=== PATIENT | female | born 1955 | race Two or more races ===

== ENCOUNTER 2020-10-19 13:39 | Outpatient (CLI) | payer MEDICARE ==
[~2020-10-19] VITALS: Ht 152.4 cm; Wt 90.3 kg
[2020-10-19 14:01] VITALS: BP 127/77
--- NOTE | 2020-10-19 16:14 | Consultation ---
DATE OF CONSULTATION: GASTROENTEROLOGY CONSULTATION REFERRING PHYSICIAN: Janeth Rain M.D. CHIEF COMPLAINT: Referral for screening colonoscopy. PAST MEDICAL HISTORY: 1. Breast cancer. 2. Diabetes. 3. GERD. 4. Chronic back pain. 5. Hypothyroidism. PAST SURGICAL HISTORY: Right mastectomy. MEDICATIONS: Please see medication reconciliation list. FAMILY HISTORY: Noncontributory. SOCIAL HISTORY: The patient denies any tobacco, alcohol, or drug abuse. ALLERGIES: No known allergies. REVIEW OF SYSTEMS: Positive for GERD. PHYSICAL EXAMINATION: VITAL SIGNS: Temperature 97.5, pulse is 91, respirations 20, blood pressure is 122/62, height is 5 feet, weight 207. HEENT: Normocephalic, atraumatic. Sclerae anicteric. NECK: Supple. No evidence of obvious lymphadenopathy. CARDIOVASCULAR: Regular rate and rhythm. Plus S1-S2. LUNGS: Clear to auscultation bilaterally. ABDOMEN: Positive bowel sounds. Soft, nontender. No rebound. No guarding. No peritoneal sign. EXTREMITIES: No cyanosis, no clubbing, no edema. ASSESSMENT AND PLAN: A 65-year-old female with history of breast cancer, needs a screening colonoscopy and also given chronic GERD, needs an endoscopy. Plan is to do an endoscopy and a colonoscopy when authorization is obtained. The patient was informed of the risks and benefits of the procedure. I want to thank Dr. Janeth Rain for this kind referral. Adan Corona M.D. DR: COLIN JOB#: [id number] CC: Janeth Rain M.D.; Fax#: [phone]
[2020-10-20] MEDS ORDERED: GLIPIZIDE5 MG ORAL (08:36)
[2020-10-20] MEDS ORDERED: SYNTHROID100 MCG ORAL (08:36)
[2020-10-20] MEDS ORDERED: NAPROXEN250 M1 PO (08:36)
[2020-10-20] MEDS ORDERED: VITAMIN D325 MC1 PO (08:36)
[2020-10-20] MEDS ORDERED: ARIMIDEX1 MG ORAL (08:36)
[2020-10-20] MEDS ORDERED: FOSAMAX70 MG ORAL (08:36)
[2020-10-20] MEDS ORDERED: ATORVASTATIN CA40 MG ORAL (08:36)
[2020-10-20] MEDS ORDERED: ACTOS15 MG ORAL (08:36)
[2020-10-20] MEDS ORDERED: METFORMIN HCL500 M1 ORAL (08:36)
== END 2020-10-19 15:39 | disposition home or self-care (01) ==
LOC: PAN 13:39
DX: K21.9 Gastro-esophageal reflux disease without esophagitis (principal); E11.9 Type 2 diabetes mellitus without complications; E03.9 Hypothyroidism, unspecified; Z85.3 Personal history of malignant neoplasm of breast
CPT/HCPCS: 99203